=== PATIENT | female | born 1970 | race Caucasian/White ===

== ENCOUNTER 2017-07-29 20:27 | Emergency (ER) | payer OTHER ==
[~2017-07-29] VITALS: Ht 157.5 cm; Wt 66.0 kg
[2017-07-29 20:31] VITALS: TEMP 36.7; Ht 157.5 cm; Wt 66.0 kg
[2017-07-29 20:59] VITALS: O2SAT 98
--- NOTE | 2017-07-29 21:18 | EMERGENCY ROOM VISIT NOTE ---
History Report prepared by Rosalva: Arturo Silvestre Under the Supervision of: Dr. Laura Hartley D.O. First contact with patient: 20:55 Chief Complaint: CHEST PAIN Stated Complaint: CHEST PAINS, VIBRATIONS IN CHEST Nursing Triage Summary: c/o a vibration in her chest since sunday now has a slight pain took nothing for pain at home. History of Present Illness The patient is a 46 year old female who presents to the Emergency Room with complaints of palpitations and a worsening chest pain starting a week ago which is now constant. She states that it has been coming and going since 1500 today. She additionally reports that a week ago she began having "vibrations" in her chest, and it has been getting worse since then. she cannot pinpoint a trigger or pattern to the sense of vibrations and states they are brief, lasting only several minutes, but over the week have become more frequent and more persistent. She states that the chest pain does not radiate anywhere, though she has had a pain in the right shoulder blade. She denies any shortness of breath, nausea, sweating, dizziness, light headedness, recent travel, change in medications, cough, cold symptoms, urinary symptoms, change in bowel movements, and any leg swelling. Denies any trauma or change in activity. The patient states that she has been a little busier at work, though she is not stressed. She has no family history of thyroid problems. She has a family history of heart failure at the age of 65. Source of History: patient Onset: a week ago Position: chest Quality: other (vibrations) Timing: constant, worsening Associated Symptoms: No cough, No SOB, No nausea, No urinary symptoms Note: Associated symptoms: Right shoulder blade pain Review of Systems See HPI for pertinent positives & negatives. A total of 10 systems reviewed and were otherwise negative. Family History FH: heart failure Social History Smoking Status: Never Smoker Marital Status: Housing Status: lives with family Occupation Status: employed Current/Historical Medications Scheduled Bupropion Hcl (Wellbutrin Sr), 150 MG PO BID Allergies Coded Allergies: No Known Allergies (Unverified , 07/29/17) Physical Exam Vital Signs Date Time Temp Pulse Resp B/P (MAP) Pulse Ox O2 Delivery O2 Flow Rate FiO2 07/29/17 23:09 71 18 121/89 98 Room Air 07/29/17 22:25 73 18 108/67 98 Room Air 07/29/17 21:15 97 Room Air 07/29/17 21:03 71 07/29/17 20:59 98 Room Air 07/29/17 20:31 36.7 83 18 150/88 98 Room Air Physical Exam GENERAL: alert, well appearing, well nourished, no distress, non-toxic EYE EXAM: normal conjunctiva, PERRL and EOM's grossly intact OROPHARYNX: no exudate, no erythema, lips, buccal mucosa, and tongue normal and mucous membranes are moist NECK: supple, no nuchal rigidity, no adenopathy, non-tender LUNGS: Clear to auscultation. Normal chest wall mechanics, no w/r/r HEART: no murmurs, S1 normal and S2 normal ABDOMEN: abdomen soft, non-tender, normo-active bowel sounds, no masses, no rebound or guarding. BACK: Back is symmetrical on inspection and there is no deformity, no midline tenderness, no CVA tenderness. SKIN: no rashes and no bruising UPPER EXTREMITIES: upper extremities are grossly normal. Nml ROM, nml pulses. LOWER EXTREMITIES: No pitting edema. Nml ROM, nml pulses. NEURO EXAM: Normal sensorium, cranial nerves II-XII grossly intact, normal speech, no gross weakness of arms, no gross weakness of legs. Medical Decision & Procedures ER Provider Diagnostic Interpretation: Radiology results have been interpreted by the radiologist and reviewed by me. CHEST ONE VIEW PORTABLE HISTORY: Atypical chest pain COMPARISON: Chest 01/18/2012. FINDINGS: The lungs are clear. Cardiac silhouette is normal in size. No pleural effusions. No pneumothorax. IMPRESSION: No acute process. Electronically signed by: Addison Walls M.D. 07/29/2017 9:54 PM Dictated Date/Time: 07/29/2017 9:53 PM Laboratory Results 07/29/17 21:07 Red Blood Count 4.66, Mean Corpuscular Volume 91.4, Mean Corpuscular Hemoglobin 31.8, Mean Corpuscular Hemoglobin Concent 34.7, Mean Platelet Volume 11.6, Neutrophils (%) (Auto) 57.5, Lymphocytes (%) (Auto) 31.1, Monocytes (%) (Auto) 7.8, Eosinophils (%) (Auto) 3.2, Basophils (%) (Auto) 0.3, Neutrophils # (Auto) 3.91, Lymphocytes # (Auto) 2.12, Monocytes # (Auto) 0.53, Eosinophils # (Auto) 0.22, Basophils # (Auto) 0.02 07/29/17 21:07 Test 07/29/17 21:07 White Blood Count 6.81 K/uL (4.8-10.8) Red Blood Count 4.66 M/uL (4.2-5.4) Hemoglobin 14.8 g/dL (12.0-16.0) Hematocrit 42.6 % (37-47) Mean Corpuscular Volume 91.4 fL (80-100) Mean Corpuscular Hemoglobin 31.8 pg (25-34) Mean Corpuscular Hemoglobin Concent 34.7 g/dl (32-36) Platelet Count 242 K/uL (130-400) Mean Platelet Volume 11.6 fL (7.4-10.4) Neutrophils (%) (Auto) 57.5 % Lymphocytes (%) (Auto) 31.1 % Monocytes (%) (Auto) 7.8 % Eosinophils (%) (Auto) 3.2 % Basophils (%) (Auto) 0.3 % Neutrophils # (Auto) 3.91 K/uL (1.4-6.5) Lymphocytes # (Auto) 2.12 K/uL (1.2-3.4) Monocytes # (Auto) 0.53 K/uL (0.11-0.59) Eosinophils # (Auto) 0.22 K/uL (0-0.5) Basophils # (Auto) 0.02 K/uL (0-0.2) RDW Standard Deviation 42.5 fL (36.4-46.3) RDW Coefficient of Variation 12.8 % (11.5-14.5) Immature Granulocyte % (Auto) 0.1 % Immature Granulocyte # (Auto) 0.01 K/uL (0.00-0.02) Prothrombin Time 9.4 SECONDS (9.0-12.0) Prothromb Time International Ratio 0.9 (0.9-1.1) D-Dimer < 190 ug/L FEU (0-500) Anion Gap 7.0 mmol/L (3-11) Est Creatinine Clear Calc Drug Dose 45.7 ml/min Estimated GFR () 52.8 Estimated GFR (Non- 45.6 BUN/Creatinine Ratio 12.2 (10-20) Calcium Level 8.9 mg/dl (8.5-10.1) Magnesium Level 2.1 mg/dl (1.8-2.4) Total Bilirubin 0.2 mg/dl (0.2-1) Aspartate Amino Transf (AST/SGOT) 28 U/L (15-37) Alanine Aminotransferase (ALT/SGPT) 48 U/L (12-78) Alkaline Phosphatase 107 U/L (45-117) Troponin I < 0.015 ng/ml (0-0.045) Total Protein 7.4 gm/dl (6.4-8.2) Albumin 3.9 gm/dl (3.4-5.0) Globulin 3.5 gm/dl (2.5-4.0) Albumin/Globulin Ratio 1.1 (0.9-2) Thyroid Stimulating Hormone (TSH) 2.440 uIu/ml (0.300-4.500) Chemistry Specimen Hemolysis Laboratory results per my review. ECG Indication: chest pain Rate (beats per minute): 80 Rhythm: normal sinus Findings: no acute ischemic change, no ectopy, other (Normal intervals and axis ) Change: EKG: Patient's electrocardiogram per my interpretation. ED Course 2107: The patient was evaluated in room B3. A complete history and physical exam was performed. 2300: Upon reevaluation, the patient is feeling the same I discussed the findings and the treatment plan with the patient. She verbalizes agreement and understanding. She was discharged home. Medical Decision Differential diagnosis: Etiologies such as cardiac ischemia, aortic dissection, pulmonary embolism, pneumonia, pneumothorax, musculoskeletal, infections, pericarditis, myocarditis , esophageal rupture, gastrointestinal, as well as others were entertained. Discussed with pt all results, f/u with pcp and with cardiology. Discussed hydration, activity, caffeine consumption, sx to watch/return for, she verbalized understanding and was agreeable with plan. No dysrhythmia noted on telemetry. No evidence of thyroid storm. Doubt acs, tamponade, pe, dissection , occult infectious etiology, aneurysm, perf, effusion. No evidence of electrolyte abnormality or renal dysfunction. Pt well appearing throughout and VS stable. Medication Reconcilliation Current Medication List: was personally reviewed by me Blood Pressure Screening Patient's blood pressure: Elevated blood pressure Blood pressure disposition: Elevated BP felt to be situational Impression Primary Impression: Chest pain Additional Impression: Palpitations Scribe Attestation The scribe's documentation has been prepared under my direction and personally reviewed by me in its entirety. I confirm that the note above accurately reflects all work, treatment, procedures, and medical decision making performed by me. Departure Information Dispostion Home / Self-Care Referrals No Doctor, Assigned (PCP) Patient Instructions My [facility] Additional Instructions Please follow up with your family doctor and discuss with them follow-up with cardiology as a precaution. Please try to cut back slowly on your caffeine consumption. Please otherwise stay well-hydrated with adequate water intake make sure you're getting plenty of rest. You may take your regular medications as prescribed. If you develop any worsening pain, develop trouble breathing, fevers, dizziness, vomiting, radiation of the pain to another site, you have any other new concerns, please return the emergency room. Problem Qualifiers Primary Impression: Chest pain Chest pain type: unspecified Qualified Codes: R07.9 - Chest pain, unspecified
[2017-07-29 21:24] LABS: BASO % 0.3 %; BASO ABS # 0.02 K/uL (0-0.2); EOS % 3.2 %; EOS ABS # 0.22 K/uL (0-0.5); HEMATOCRIT 42.6 % (37-47); HEMOGLOBIN 14.8 g/dL (12.0-16.0); IG# 0.01 K/uL (0.00-0.02); LYMPH % 31.1 %; LYMPH ABS # 2.12 K/uL (1.2-3.4); MEAN CELL VOLUME 91.4 fL (80-100); MEAN CORPUSCULAR HEMOGLOBIN 31.8 pg (25-34); MEAN CORPUSCULAR HGB CONC 34.7 g/dl (32-36); MEAN PLATELET VOLUME 11.6 fL (7.4-10.4); MONO % 7.8 %; MONO ABS # 0.53 K/uL (0.11-0.59); NEUT % 57.5 %; NEUT ABS # 3.91 K/uL (1.4-6.5); PLATELET COUNT 242 K/uL (130-400); RED CELL DISTRIBUTION WIDTH CV 12.8 % (11.5-14.5); RED CELL DISTRIBUTION WIDTH SD 42.5 fL (36.4-46.3); WHITE BLOOD COUNT 6.81 K/uL (4.8-10.8)
[2017-07-29] MEDS ORDERED: BUPR150T7 PO (21:37)
[2017-07-29 21:40] LABS: ALBUMIN 3.9 gm/dl (3.4-5.0); BLOOD UREA NITROGEN 17 mg/dl (7-18); CALCIUM 8.9 mg/dl (8.5-10.1); CARBON DIOXIDE 28 mmol/L (21-32); GLUCOSE 89 mg/dl (70-99); POTASSIUM 3.7 mmol/L (3.5-5.1); SODIUM 142 mmol/L (136-145)
[2017-07-29 21:49] LABS: ALKALINE PHOSPHATASE 107 U/L (45-117); ALT/SGPT 48 U/L (12-78); AST/SGOT 28 U/L (15-37); TOTAL PROTEIN 7.4 gm/dl (6.4-8.2)
[2017-07-29 21:54] LABS: INR 0.9 (0.9-1.1)
--- NOTE | 2017-07-29 21:56 | DIAGNOSTIC IMAGING REPORT ---
CHEST ONE VIEW PORTABLE HISTORY: Atypical chest pain COMPARISON: Chest 01/18/2012. FINDINGS: The lungs are clear. Cardiac silhouette is normal in size. No pleural effusions. No pneumothorax. IMPRESSION: No acute process. Electronically signed by: Addison Walls M.D. 07/29/2017 9:54 PM Dictated Date/Time: 07/29/2017 9:53 PM
[2017-07-29 23:09] VITALS: BP 121/89; PULSE 71; O2SAT 98
== END 2017-07-29 23:32 | disposition home or self-care (01) ==
LOC: C.EDB 20:28
DX: R07.9 Chest pain, unspecified (principal); R00.2 Palpitations; M25.511 Pain in right shoulder; Z79.899 Other long term (current) drug therapy; Z82.49 Family history of ischemic heart disease and other diseases of the circulatory system